=== PATIENT | male | born 1940 | race Caucasian/White ===

== ENCOUNTER → 2016-12-24 | Outpatient (CLI) | payer MEDICARE ==
[~2016-12-24] MED LIST: AMLO10TA4 PO; ATOR20TA9 PO; DABI150C PO; DRON400T PO; GLUC1TAB55 PO; LORA10TA3 PO; METOPROLOL PO; MULT-717 PO; OMEP-110 PO; PRESERVISION PO; REGADENOSON 0.4 MG/5 ML SYRINGE ONE; UBID50TA3 PO; ZOLP5TAB6 PO
== END | disposition home or self-care (01) ==
LOC: CFH 07:27
PROVIDERS: ATTEND Internal Medicine Cardiovascular Disease
DX: I48.2 Chronic atrial fibrillation (principal); I10 Essential (primary) hypertension
CPT/HCPCS: 78452; 93017; 93306; A9502; J2785

== ENCOUNTER → 2018-01-13 | Outpatient (CLI) | payer MEDICARE ==
[~2018-01-13] MED LIST changes: -REGADENOSON 0.4 MG/5 ML SYRINGE ONE
== END ==
LOC: CVU 10:20
PROVIDERS: ATTEND Internal Medicine Cardiovascular Disease
DX: I08.1 Rheumatic disorders of both mitral and tricuspid valves (principal); I48.2 Chronic atrial fibrillation; I71.9 Aortic aneurysm of unspecified site, without rupture
CPT/HCPCS: 93306

== ENCOUNTER → 2018-02-04 | Outpatient (CLI) | payer MEDICARE | END | disposition home or self-care (01) | LOC: RAD 07:54 | PROVIDERS: ATTEND Pain Medicine Interventional Pain Medicine | DX: M48.061 Spinal stenosis, lumbar region without neurogenic claudication (principal); M51.36 Other intervertebral disc degeneration, lumbar region | CPT/HCPCS: 72148 ==

== ENCOUNTER → 2018-12-29 | Outpatient (CLI) | payer MEDICARE ==
[~2018-12-29] MED LIST changes: +ATOR20TA37 PO; -ATOR20TA9 PO; +LORA-247 PO; -LORA10TA3 PO; +REGADENOSON 0.4 MG/5 ML SYRINGE ONE
== END | disposition home or self-care (01) ==
LOC: CFH 07:22
PROVIDERS: ATTEND Internal Medicine Cardiovascular Disease
DX: I08.1 Rheumatic disorders of both mitral and tricuspid valves (principal); I48.91 Unspecified atrial fibrillation; I71.2 Thoracic aortic aneurysm, without rupture; I25.10 Atherosclerotic heart disease of native coronary artery without angina pectoris
CPT/HCPCS: 78452; 93017; 93306; A9502; J2785

== ENCOUNTER → 2020-06-23 | Outpatient (CLI) | payer MEDICARE | END | disposition home or self-care (01) | LOC: CFH 06:47 | PROVIDERS: ATTEND Internal Medicine Cardiovascular Disease | DX: I25.10 Atherosclerotic heart disease of native coronary artery without angina pectoris (principal); I48.20 Chronic atrial fibrillation, unspecified | CPT/HCPCS: 78452; 93017; A9502; J2785 ==

== ENCOUNTER 2020-08-07 13:06 | Emergency (ER) | payer MEDICARE ==
[~2020-08-07] VITALS: Ht 180.3 cm; Wt 103.0 kg
[~2020-08-07 13:06] MED LIST changes: -REGADENOSON 0.4 MG/5 ML SYRINGE ONE
[2020-08-07 13:58] LABS: BASOPHILS % (AUTO) 1 % (0-1); EOSINOPHILS % (AUTO) 2 % (1-7); LYMPHOCYTES % (AUTO) 21 % (22-44); MEAN CORPUSCULAR HEMOGLOBIN 31.5 pg (27.5-34.5); MEAN CORPUSCULAR HGB CONC 33.5 g/dL (33.2-36.2); MEAN PLATELET VOLUME 8.4 fL (7.4-10.4); MONOCYTES % (AUTO) 9 % (2-9); NEUTROPHILS % (AUTO) 67 % (42-75); PLATELET COUNT 236 x10^3/uL (130-400); RED BLOOD COUNT 4.69 x10^6/uL (4.38-5.82); RED CELL DISTRIBUTION WIDTH 13.8 % (9.4-14.8)
[2020-08-07 14:09] LABS: ALBUMIN 4.1 g/dL (3.4-5.0); ANION GAP 5 mmol/L (5-15); CALCIUM 9.2 mg/dL (8.5-10.1); CHLORIDE 107 mmol/L (98-107); CREATININE 1.17 mg/dL (0.7-1.3)
[2020-08-07 14:12] LABS: MD NO
[2020-08-07 14:13] LABS: TROPONIN I 0.021 ng/mL (0.000-0.045)
[2020-08-07 15:10] VITALS: BP 127/56
--- NOTE | 2020-08-07 15:21 | NUR ---
TO F/Rakel GALLEGOS TOMORROW AM.
== END 2020-08-07 15:23 | disposition home or self-care (01) ==
LOC: ED 15:10
DX: I48.20 Chronic atrial fibrillation, unspecified (principal); R00.1 Bradycardia, unspecified
CPT/HCPCS: 36415; 71045; 80048; 82040; 84484; 85025; 93005; 99285

== ENCOUNTER 2020-09-19 10:11 | Observation (INO) | payer MEDICARE ==
[~2020-09-19] VITALS: Ht 180.3 cm; Wt 99.2 kg
[2020-09-19 11:08] LABS: ANION GAP 3 mmol/L (5-15); CALCIUM 9.4 mg/dL (8.5-10.1); CHLORIDE 110 mmol/L (98-107)
[2020-09-19 11:10] LABS: BASOPHILS % (AUTO) 1 % (0-1); CREATININE 1.24 mg/dL (0.7-1.3); EOSINOPHILS % (AUTO) 2 % (1-7); LYMPHOCYTES % (AUTO) 19 % (22-44); MEAN CORPUSCULAR HEMOGLOBIN 32.2 pg (27.5-34.5); MEAN CORPUSCULAR HGB CONC 34.5 g/dL (33.2-36.2); MEAN PLATELET VOLUME 8.4 fL (7.4-10.4); MONOCYTES % (AUTO) 8 % (2-9); NEUTROPHILS % (AUTO) 70 % (42-75); PLATELET COUNT 224 x10^3/uL (130-400); RED BLOOD COUNT 4.68 x10^6/uL (4.38-5.82); RED CELL DISTRIBUTION WIDTH 13.9 % (9.4-14.8)
[2020-09-19 11:11] LABS: MD NO
[2020-09-19] MEDS ORDERED: CEFAZOLIN 1,000 MG ONE (13:32)
[2020-09-19] MEDS ORDERED: LIDOCAINE 2%, 20ML ONE (13:32)
[2020-09-19] MEDS ORDERED: MIDAZOLAM 1 MG/ML, 5ML ONE (13:32)
[2020-09-19] MEDS ORDERED: CEFAZOLIN PMX 1GM/50ML 50 ML ONE (13:32)
[2020-09-19] MEDS ORDERED: FENTANYL PF 100 MCG/2ML ONE ×2 (13:32→14:13)
[2020-09-19 14:00] VITALS: BP 145/78
[2020-09-19] MEDS ORDERED: DIPHENHYDRAMINE 50 MG/ML, 1ML ONE (14:13)
[2020-09-19] MEDS ORDERED: HOLD MEDICATION MC PRN (15:30)
[2020-09-19] MEDS ORDERED: ZOLPIDEM 5MG TABLET PO PRN ×2 (15:30→21:00)
[2020-09-19] MEDS ORDERED: ONDANSETRON 2MG/ML, 2ML IV PRN (15:30)
[2020-09-19] MEDS ORDERED: HYDROcodone/APAP 5/325 TABLET PO PRN (15:30)
[2020-09-19] MEDS: SODIUM CHLORIDE 0.9% 1,000 ML IV SCH ×2 (16:19→17:16)
[2020-09-19] MEDS: OMEPRAZOLE 20 MG CAPSULE.DR PO SCH (17:10)
[2020-09-19 19:54] VITALS: BP 143/80
[2020-09-19] MEDS ORDERED: DABIGATRAN 150 MG CAPSULE PO SCH (21:00)
[2020-09-19] MEDS ORDERED: ATORVASTATIN 40 MG TABLET PO SCH (21:00)
[2020-09-19] MEDS: ACETAMINOPHEN 325 MG TABLET PO PRN (21:35)
[2020-09-19] MEDS: SODIUM CHLORIDE FLUSH 10ML SYR IVF SCH (21:35)
[2020-09-20] MEDS: CEFAZOLIN PMX 1GM/50ML 50 ML IVPB SCH ×2 (00:08→06:44)
[2020-09-20 03:41] VITALS: BP 157/72
[2020-09-20] MEDS ORDERED: LOSA100T2 PO ×2 (05:48→08:29)
[2020-09-20] MEDS: OMEPRAZOLE 20 MG CAPSULE.DR PO SCH (05:49)
[2020-09-20] MEDS ORDERED: ACET325T26 PO (08:29)
[2020-09-20 09:00] VITALS: BP 163/91
[2020-09-20] MEDS: SODIUM CHLORIDE FLUSH 10ML SYR IVF SCH (09:00)
[2020-09-20] MEDS ORDERED: AMLODIPINE 5 MG TABLET PO SCH (09:00)
[2020-09-20] MEDS ORDERED: LORATADINE 10 MG TABLET PO SCH (09:00)
[2020-09-20] MEDS ORDERED: LOSARTAN 100 MG TAB PO SCH (09:00)
[2020-09-20] MEDS: ACETAMINOPHEN 325 MG TABLET PO PRN (10:01)
[2020-09-21] MEDS ORDERED: ZOLPIDEM 5MG TABLET PO SCH (09:00)
== END 2020-09-20 10:15 | disposition home or self-care (01) ==
LOC: CACL 10:11 → 5SO 14:45 → CACL 20:51 → DCLOUNGE 09-20 10:05
PROVIDERS: ADMIT Internal Medicine Cardiovascular Disease; ATTEND Internal Medicine Cardiovascular Disease
DX: I44.2 Atrioventricular block, complete (principal); I48.20 Chronic atrial fibrillation, unspecified; R00.1 Bradycardia, unspecified; I25.10 Atherosclerotic heart disease of native coronary artery without angina pectoris; I71.2 Thoracic aortic aneurysm, without rupture; G47.33 Obstructive sleep apnea (adult) (pediatric); E66.9 Obesity, unspecified; I10 Essential (primary) hypertension; E78.00 Pure hypercholesterolemia, unspecified; Z79.01 Long term (current) use of anticoagulants; Z79.899 Other long term (current) drug therapy
CPT/HCPCS: 33207; 36415; 71045; 71046; 80048; 85025; 96365; 96366; 99156; 99157; C1779; C1786; C1892; G0378; J0690; J1200; J2250; J3010; J3490

== ENCOUNTER 2021-05-08 08:08 | Outpatient (CLI) | payer MEDICARE ==
[~2021-05-08 08:08] MED LIST changes: +ACET325T26 PO; -DRON400T PO; +DRON400T6 PO; +LOSA100T2 PO
== END 2021-05-08 23:59 | disposition home or self-care (01) ==
LOC: CFH 08:08
PROVIDERS: ATTEND Internal Medicine Cardiovascular Disease
DX: I08.3 Combined rheumatic disorders of mitral, aortic and tricuspid valves (principal); I25.10 Atherosclerotic heart disease of native coronary artery without angina pectoris; I11.9 Hypertensive heart disease without heart failure
CPT/HCPCS: 93306